=== PATIENT | female | born 1940 | race Caucasian/White ===

== ENCOUNTER 2017-10-30 15:00 | Inpatient (IN) ==
[2017-10-30] MEDS ORDERED: Mag Hydrox/Al Hydrox/Simeth 30 ML UDC PO PRN (16:20)
[2017-10-30] MEDS ORDERED: Albuterol 2.5 MG/3 ML NEBULIZER IH PRN (16:20)
[2017-10-30] MEDS ORDERED: *HR* Dextrose 50 % in Water (Syg) 50 ML SYRINGE IVP PRN (16:20)
[2017-10-30] MEDS ORDERED: Naloxone 0.4 MG/ML INJ IVP PRN (16:20)
[2017-10-30] MEDS ORDERED: Dextrose Gel 15 GM PO PRN (16:20)
[2017-10-30] MEDS ORDERED: NON-FORMULARY MEDICATION 1 EACH EACH (Oxygen [Oxygen] 3 L) NS SCH (16:30)
[2017-10-30] MEDS: Insulin LISPRO 300 UNITS/3 ML VIAL SQ SCH (17:50)
[2017-10-30] MEDS: Gabapentin 300 MG CAPSULE PO SCH (20:17)
[2017-10-30] MEDS: Nystatin POWDER 30 GM BOTTLE TP SCH (20:17)
[2017-10-30] MEDS: Insulin DETEMIR 100 UNIT/ML X5UNITS SQ SCH (20:20)
[2017-10-30] MEDS: Ipratropium/Albuterol Neb 3 ML IH SCH (20:23)
[2017-10-31] MEDS: Ipratropium/Albuterol Neb 3 ML IH SCH ×7 (00:04→22:07)
[2017-10-31 05:55] LABS: Hematocrit 42.2 % (35.3-44.9); Hemoglobin 13.4 g/dL (11.5-15.4); Mean Corpuscular HGB Conc 31.8 g/dL (31.6-35.5); Mean Corpuscular Hemoglobin 32.3 pg (28.0-33.3); Mean Corpuscular Volume 101.7 fL (83.0-100.0); Mean Platelet Volume 9.6 fL (9.4-12.4); Platelet Count 276 K/mcL (140-400); Red Blood Count 4.15 M/mcL (3.82-4.97); Red Cell Distribution Width 14.7 % (11.5-14.5)
[2017-10-31 07:05] LABS: BUN/Creatinine Ratio 40 (6-26); Blood Urea Nitrogen 31 mg/dL (8-23); Carbon Dioxide 41 mEq/L (23-29); Chloride 96 mEq/L (98-107); Glucose 119 mg/dL (70-105); Osmolality,Calculated 304 (280-300); Potassium 4.3 mEq/L (3.5-5.1); Sodium 143 mEq/L (136-145); eGFR For African Americans > 60 (> 60); eGFR For Non-African Americans > 60 (> 60)
[2017-10-31 07:31] LABS: Lymphocytes # 1.2 K/mcL (0.6-4.6); Monocytes # 0.3 K/mcL (0.0-1.3)
[2017-10-31] MEDS ORDERED: Diltiazem CD (24hr) 300 MG CAPSULE PO SCH (09:00)
[2017-10-31] MEDS ORDERED: predniSONE 10 MG TABLET PO SCH (09:00)
[2017-10-31] MEDS: Insulin LISPRO 300 UNITS/3 ML VIAL SQ SCH ×3 (09:11→16:59)
[2017-10-31] MEDS: Gabapentin 300 MG CAPSULE PO SCH ×3 (09:58→21:43)
[2017-10-31] MEDS: Metoprolol XL (24 HR) Succ 25 MG TAB.ER.24H PO SCH (09:59)
[2017-10-31] MEDS: Aspirin Enteric Coated 81 MG Tablet PO SCH (09:59)
[2017-10-31] MEDS: Insulin DETEMIR 100 UNIT/ML X5UNITS SQ SCH ×2 (10:11→21:47)
[2017-10-31] MEDS: Diltiazem CD (24hr) 180 MG CAPSULE PO SCH (12:23)
--- NOTE | 2017-10-31 14:21 | Internal Med History&Physical ---
Date of Encounter: 10/31/17 Time of Encounter: 12:15 Assessment and Plan (1) Pneumonia Current visit: No Status: Acute Continue Levaquin for 2 additional days. Will add lactobacillus. Qualifiers: Pneumonia type: due to unspecified organism Laterality: right Lung location: lower lobe of lung Qualified Code(s): J18.1 - Lobar pneumonia, unspecified organism (2) Leukocytosis Current visit: No Status: Acute Improving. Will discontinue steroids and continue to monitor CBC. Qualifiers: Leukocytosis type: unspecified Qualified Code(s): D72.829 - Elevated white blood cell count, unspecified (3) Left humeral fracture Current visit: No Status: Chronic As per orthopedist. Qualifiers: Encounter type: subsequent encounter Humerus Location: proximal Fracture type: closed Fracture morphology: other fracture Fracture alignment: displaced Fracture healing: with routine healing Qualified Code(s): S42.292D - Other displaced fracture of upper end of left humerus, subsequent encounter for fracture with routine healing (4) Diastolic dysfunction with heart failure Current visit: No Status: Acute Will add Lanoxin, Imdur and Bumex. Continue Toprol Qualifiers: Heart failure chronicity: acute on chronic Qualified Code(s): I50.33 - Acute on chronic diastolic (congestive) heart failure (5) Hypothyroidism Current visit: No Status: Chronic Continue Synthroid Qualifiers: Hypothyroidism type: acquired Qualified Code(s): E03.9 - Hypothyroidism, unspecified (6) Atrial fibrillation Current visit: Yes Status: Chronic She is on aspirin for CVA prophylaxis since the [facility] discharge summary states she has had retinal hemorrhage and oral anticoagulation was contraindicated. Qualifiers: Atrial fibrillation type: chronic Qualified Code(s): I48.2 - Chronic atrial fibrillation (7) CAD (coronary artery disease) Current visit: No Status: Chronic Continue aspirin, Toprol, and Imdur Qualifiers: Coronary Disease-Associated Artery/Lesion type: [place] artery [place] vs. transplanted heart: [place] heart Associated angina: without angina Qualified Code(s): I25.10 - Atherosclerotic heart disease of [place] coronary artery without angina pectoris (8) HILLARY (obstructive sleep apnea) Current visit: No Status: Chronic Continue BiPAP at at bedtime (9) Morbid obesity Current visit: No Status: Chronic (10) Macrocytosis Current visit: Yes Status: Acute Will order folate and B12 levels in a.m. Internal Medicine - H&P: HPI Chief complaint: Pneumonia Admitted From: Hospital to Hospital Transfer Plans for Post Hospital Care: Home History of present illness: Ms. Lock is a 77 year old female who was hospitalized at [facility] October 22 with acute respiratory failure and pneumonia. She had influenza A followed by a diagnosis of bacterial pneumonia. She was prescribed a 10 day course of Levaquin. She had evidence of heart failure. Cardiology was consulted and made recommendations. She was discharged to [facility] swing bed for ongoing care needs. She reports she had a fall October 03 resulting in a left humerus fracture. She states he was treated nonoperatively and has used an immobilizer sling. She has not walked since the October 03 fall. Past Med Surg Social Fam HX - Past Medical History Medical history: arthritis, atrial fibrillation, cancer, COPD, coronary artery disease, diabetes, hyperlipidemia, hypertension, myocardial infarction, renal disease Psychiatric history: anxiety, depression - Past Surgical History Surgical History: appendectomy, cancer surgery, cataract, cholecystectomy, hysterectomy, orthopedic, other, ETHAN/BSO - Social History Smoking Status: Former smoker Smokeless Tobacco Status: No Alcohol use: none Drug use: none - Family History Father Living Status: Hx Family Cardiac Disorders: Yes Mother Adopted: No Family Member Ethnicity: Non- Living Status: Hx Family Cardiac Disorders: Yes Hx Family Respiratory Disorders: No Hx Family Cancer: No Hx Family GI Disorders: No Hx Family Endocrine Disorder: No Hx Family Neuromuscular Disorders: No Hx Family Neurologic Disorders: No Hx Family HEENT Disorders: Yes Hx Family Autoimmune Disorders: No Internal Medicine - H&P: Meds Aspirin Enteric Coated [Aspirin EC] 81 mg PO DAILY #30 tablet. 06/02/15 [Rx] Insulin DETEMIR [Levemir] 80 unit SQ BID 07/06/15 [History] Levothyroxine [Synthroid] 175 mcg PO DAILY 07/06/15 [History] Lisinopril [Zestril] 20 mg PO DAILY 09/08/15 [History] Duloxetine HCl 60 mg PO DAILY 10/07/16 [History] Albuterol Sulfate [Albuterol Inhaler] 2 puff IH Q4HR PRN #4 [id number] 10/09/16 [Rx] Gabapentin [Neurontin] 600 mg PO TID 03/06/17 [History] Multivitamin [One Daily Essential] 1 tab PO DAILY 03/06/17 [History] Oxygen 3 l NS CONT 03/06/17 [History] Ipratropium/Albuterol Neb [Duoneb] 3 ml IH [id number] inhsol 10/05/17 [Rx] Atorvastatin Calcium [Lipitor] 80 mg PO HS 10/22/17 [History] Metoprolol Succinate [Toprol Xl] 25 mg PO DAILY 10/22/17 [History] Mirabegron [Myrbetriq] 50 mg PO DAILY 10/22/17 [History] Acetaminophen [Tylenol] 650 mg PO Q6HR PRN tablet 10/30/17 [Rx] Albuterol Neb [Proventil Neb] 2.5 mg IH [id number] PRN inhsol 10/30/17 [Rx] Dextrose 50 % in Water (Syg) [Dextrose 50% (Syg)] 25 ml IVP AD PRN syringe [Rx] Dextrose Gel [Gluctose] 30 gm PO ONCE PRN gel..gram. 10/30/17 [Rx] Diltiazem CD (24hr) [Cardizem CD] 360 mg PO DAILY cap.er.24h 10/30/17 [Rx] Docusate [Colace] 100 mg PO BID PRN capsule 10/30/17 [Rx] Glucagon, Human Recombinant [Glucagen] 1 mg IM ONCE PRN vial 10/30/17 [Rx] HYDROcodone/Acet 5/325 mg [[place] 5-325 mg] 1 tab PO Q6HR PRN 1 Days tablet [Rx] Insulin DETEMIR [Levemir] 85 unit SQ BID [id number] 10/30/17 [Rx] Insulin LISPRO [HumaLOG] 0 units SQ TIDAC vial 10/30/17 [Rx] Insulin LISPRO [HumaLOG] 20 units SQ TIDWM vial 10/30/17 [Rx] Ipratropium/Albuterol Neb [Duoneb] 3 ml IH [id number] inhsol 10/30/17 [Rx] Lactulose 10 gm PO BID PRN udc 10/30/17 [Rx] Mag Hydrox/Al Hydrox/Simeth [Maalox] 15 ml PO Q6HR PRN udc 10/30/17 [Rx] Naloxone [Narcan] 0.4 mg IVP Q2MIN PRN inj 10/30/17 [Rx] Nystatin POWDER [Nystop] 1 appl TP BID bottle 10/30/17 [Rx] Omeprazole [PriLOSEC] 20 mg PO DAILY@0730 capsule. 10/30/17 [Rx] Polyethylene Glycol 3350 [MiraLAX] 17 gm PO DAILY powd.pack 10/30/17 [Rx] Sennosides/Docusate Sodium [Senna Plus] 2 each PO BID PRN tablet 10/30/17 [Rx] levoFLOXacin [Levaquin] 750 mg PO DAILY tablet 10/30/17 [Rx] predniSONE [PredniSONE] 30 mg PO DAILY tablet 10/30/17 [Rx] 3 Allergy/AdvReac Type Severity Reaction Status Date / Time hydrocodone [From Vicodin] AdvReac Nausea Verified 03/05/17 17:03 metformin [From Glucophage] AdvReac Diarrhea Verified 07/06/15 09:38 All Systems PM: A 10-system review of systems was performed and is negative for pertinent findings except as documented above in the HPI. Review of systems: Gen.: She states her weight has been stable the past few months Cardiovascular: She has history of hypertension. She states she was diagnosed with atrial fibrillation approximately one year ago. She has ASHD status post TX with 2 stents placed in 2017. She denies DVT or pulmonary embolus. Respiratory: She smoked from age [age] up to 2 packs per day. She has been diagnosed with COPD but does not recall when PFTs were done. She has HILLARY and uses BiPAP. She wears oxygen 24/7. She reports presently having a cough with no significant productivity. GI: She has had cholecystectomy. She had pancreatitis approximately 25 years ago without recurrence. She denies disorders of her liver. : She denies hematuria dysuria or kidney stones Neurologic: She denies large distribution strokes or seizures. Endocrine: She was diagnosed with DM 2 approximately age 52. She has hypothyroidism and hyperlipidemia Hematology/oncology: She states she was diagnosed with renal cell cancer approximately 25 years ago. She reports a subtotal resection was done which was curative. She reports cervical cancer with curative hysterectomy 2013. She denies other internal malignancies or anemia Psychiatric: She has depression and anxiety but denies other mental health issues Muscular skeletal: She has DJD but denies gout or other bone joint or muscle disorders. - Constitutional Vitals: Temp Pulse Resp BP Pulse Ox 98.7 F 92 18 117/83 93 10/31/17 11:44 10/31/17 11:44 10/31/17 11:55 10/31/17 11:44 10/31/17 11:55 Exam: Gen.: She is a well-developed obese female lying in bed who appears in no severe distress at present time. She appears slightly dyspneic. HEENT: Head is atraumatic and normocephalic. Eyes: EOMI. There is no scleral icterus. Mouth: Mucosa is moist. Neck: Supple and nontender. There is no thyromegaly or adenopathy noted. Heart: Irregularly irregular without audible murmurs Lungs: No wheezes or crackles are heard. She has diminished breath sounds diffusely. Abdomen: She has a very large abdomen. There are ecchymosis on the abdominal wall. No masses or guarding are noted. Extremities: She has 2-3+ edema of the dorsum of feet and lower anterior shins bilaterally. She has a left arm immobilizer sling that is not fastened securely. She has significant ecchymosis and edema of the entire left upper arm with edema extending down into the fingers. There is minimal edema of the right arm. She has ecchymoses of the right knee. Neurologic: Mental status: She is talkative and a good historian. Cranial nerves: Smile is symmetric. Forehead wrinkles bilaterally. Tongue protrudes midline. EOMI. Motor: There is no pronator drift with her right arm. The left arm does not move well because of the fracture and edema. Cerebellar: Finger to nose is not attempted with the left hand. Right arm shows intact finger to nose movement. Skin: She has ecchymosis as described above. Otherwise her skin is warm and dry. Internal Med - H&P Results - Labs CBC & Chem 7: 10/31/17 05:07 10/31/17 05:07 Labs: Short CBC 10/31/17 Range/Units 05:07 WBC 15.5 H (4.3-11.1) K/mcL Hgb 13.4 (11.5-15.4) g/dL Hct 42.2 (35.3-44.9) % Plt Count 276 (140-400) K/mcL Neutrophils # 14.0 H (1.6-8.9) K/mcL BMP 10/31/17 05:07 Sodium 143 Potassium 4.3 Chloride 96 L Carbon Dioxide 41 H* BUN 31 H Creatinine 0.78 Glucose 119 H Calcium 9.0
[2017-10-31] MEDS: Bumetanide 1 MG TABLET PO SCH (16:30)
[2017-10-31] MEDS: *HR* Digoxin 0.125 MG TABLET PO SCH (16:30)
[2017-10-31] MEDS: Isosorbide MONOnitrate (24 HR) 30 MG TAB.ER.24H PO SCH (16:30)
[2017-10-31] MEDS: levoFLOXacin 250 MG TABLET PO SCH (16:34)
[2017-10-31] MEDS: Nystatin POWDER 30 GM BOTTLE TP SCH (21:43)
[2017-10-31] MEDS: Lactobacillus 1 EACH CAP.SPRINK PO SCH (21:43)
[2017-10-31] MEDS: *HR* HYDROcodone/Acet 5/325 mg TABLET PO PRN (21:45)
[2017-11-01] MEDS: Nystatin POWDER 30 GM BOTTLE TP SCH ×3 (00:40→21:06)
[2017-11-01] MEDS: Ipratropium/Albuterol Neb 3 ML IH SCH ×5 (04:15→20:46)
[2017-11-01] MEDS: Diltiazem CD (24hr) 180 MG CAPSULE PO SCH (09:02)
[2017-11-01] MEDS: Lactobacillus 1 EACH CAP.SPRINK PO SCH ×2 (09:10→21:05)
[2017-11-01] MEDS: Bumetanide 1 MG TABLET PO SCH (09:10)
[2017-11-01] MEDS: Aspirin Enteric Coated 81 MG Tablet PO SCH (09:13)
[2017-11-01] MEDS: Gabapentin 300 MG CAPSULE PO SCH ×3 (09:13→21:05)
[2017-11-01] MEDS: Isosorbide MONOnitrate (24 HR) 30 MG TAB.ER.24H PO SCH (09:13)
[2017-11-01] MEDS: *HR* Digoxin 0.125 MG TABLET PO SCH (09:13)
[2017-11-01] MEDS: levoFLOXacin 250 MG TABLET PO SCH (09:14)
[2017-11-01] MEDS: Insulin LISPRO 300 UNITS/3 ML VIAL SQ SCH ×3 (09:17→17:42)
[2017-11-01] MEDS: Metoprolol XL (24 HR) Succ 25 MG TAB.ER.24H PO SCH (09:22)
--- NOTE | 2017-11-01 10:24 | Internal Med Progress Note ---
Date of Encounter: 11/01/17 Time of Encounter: 10:15 - Assessment and plan (1) Pneumonia Current Visit: No Status: Acute Assessment and plan: November 01. Continue Levaquin through tomorrow's doses with lactobacillus. Qualifiers: Pneumonia type: due to unspecified organism Laterality: right Lung location: lower lobe of lung Qualified Code(s): J18.1 - Lobar pneumonia, unspecified organism (2) Leukocytosis Current Visit: No Status: Acute Assessment and plan: November 01. We will monitor CBC. Qualifiers: Leukocytosis type: unspecified Qualified Code(s): D72.829 - Elevated white blood cell count, unspecified (3) Left humeral fracture Current Visit: No Status: Chronic Assessment and plan: November 01. As per orthopedist Qualifiers: Encounter type: subsequent encounter Humerus Location: proximal Fracture type: closed Fracture morphology: other fracture Fracture alignment: displaced Fracture healing: with routine healing Qualified Code(s): S42.292D - Other displaced fracture of upper end of left humerus, subsequent encounter for fracture with routine healing (4) Diastolic dysfunction with heart failure Current Visit: No Status: Acute Assessment and plan: November 01. Continue Lanoxin, Imdur, Bumex, and Toprol Qualifiers: Heart failure chronicity: acute on chronic Qualified Code(s): I50.33 - Acute on chronic diastolic (congestive) heart failure (5) Hypothyroidism Current Visit: No Status: Chronic Assessment and plan: November 01. Continue Synthroid Qualifiers: Hypothyroidism type: acquired Qualified Code(s): E03.9 - Hypothyroidism, unspecified (6) Atrial fibrillation Current Visit: Yes Status: Chronic Assessment and plan: November 01. Continue aspirin Qualifiers: Atrial fibrillation type: chronic Qualified Code(s): I48.2 - Chronic atrial fibrillation (7) CAD (coronary artery disease) Current Visit: No Status: Chronic Assessment and plan: November 01. Continue aspirin, Toprol, and Imdur Qualifiers: Coronary Disease-Associated Artery/Lesion type: [place] artery [place] vs. transplanted heart: [place] heart Associated angina: without angina Qualified Code(s): I25.10 - Atherosclerotic heart disease of [place] coronary artery without angina pectoris (8) HILLARY (obstructive sleep apnea) Current Visit: No Status: Chronic Assessment and plan: November 01. Continue BiPAP (9) Morbid obesity Current Visit: No Status: Chronic (10) Macrocytosis Current Visit: Yes Status: Acute Assessment and plan: November 01. B12 and folate levels pending. - Subjective Interval history: November 01. She has no new complaints and feels better - Constitutional Vitals: Temp Pulse Resp BP Pulse Ox 97.6 F 102 18 97/60 95 11/01/17 06:44 11/01/17 06:44 11/01/17 06:44 11/01/17 06:44 11/01/17 07:03 Exam: She is resting comfortably in bed and appears in no acute distress. Her edema is minimally changed. Her affect is bright and cheerful. I reviewed her medications and lab results. Internal Medicine: Result - Labs CBC & Chem 7: 10/31/17 05:07 10/31/17 05:07 - ABG Interpretation ABG results: PT/INR, D-dimer PT 11.0 Seconds (9.4-12.1) 10/31/17 05:07 Consult Discharge Plan - Plan Referrals: Nahomi Crandall, DIRECTOR OF BLOOD [Primary Care Provider] - 1 week
[2017-11-01] MEDS: Insulin DETEMIR 100 UNIT/ML X5UNITS SQ SCH ×2 (12:36→21:06)
[2017-11-01 14:09] LABS: Folate 15.6 ng/mL (3.0-16.0)
[2017-11-01] MEDS: *HR* HYDROcodone/Acet 5/325 mg TABLET PO PRN (17:40)
[2017-11-02] MEDS: Ipratropium/Albuterol Neb 3 ML IH SCH ×6 (00:30→20:07)
[2017-11-02] MEDS: Insulin LISPRO 300 UNITS/3 ML VIAL SQ SCH ×3 (08:39→17:23)
[2017-11-02] MEDS ORDERED: predniSONE 10 MG TABLET PO SCH (09:00)
[2017-11-02] MEDS: Diltiazem CD (24hr) 180 MG CAPSULE PO SCH (09:16)
[2017-11-02] MEDS: Bumetanide 1 MG TABLET PO SCH (09:16)
[2017-11-02] MEDS: Insulin DETEMIR 100 UNIT/ML X5UNITS SQ SCH (09:16)
[2017-11-02] MEDS: *HR* Digoxin 0.125 MG TABLET PO SCH (09:17)
[2017-11-02] MEDS: Lactobacillus 1 EACH CAP.SPRINK PO SCH ×2 (09:17→22:01)
[2017-11-02] MEDS: Aspirin Enteric Coated 81 MG Tablet PO SCH (09:17)
[2017-11-02] MEDS: Isosorbide MONOnitrate (24 HR) 30 MG TAB.ER.24H PO SCH (09:19)
[2017-11-02] MEDS: Gabapentin 300 MG CAPSULE PO SCH ×3 (09:19→22:01)
[2017-11-02] MEDS: Metoprolol XL (24 HR) Succ 25 MG TAB.ER.24H PO SCH (09:20)
[2017-11-02] MEDS: Nystatin POWDER 30 GM BOTTLE TP SCH ×2 (09:21→21:00)
[2017-11-02] MEDS: *HR* HYDROcodone/Acet 5/325 mg TABLET PO PRN ×3 (09:31→22:02)
[2017-11-03] MEDS: Ipratropium/Albuterol Neb 3 ML IH SCH ×5 (00:23→16:32)
[2017-11-03] MEDS: Insulin DETEMIR 100 UNIT/ML X5UNITS SQ SCH ×3 (08:14→21:03)
[2017-11-03] MEDS: Insulin LISPRO 300 UNITS/3 ML VIAL SQ SCH ×3 (08:44→16:49)
[2017-11-03] MEDS: Diltiazem CD (24hr) 180 MG CAPSULE PO SCH (08:45)
[2017-11-03] MEDS: Aspirin Enteric Coated 81 MG Tablet PO SCH (08:45)
[2017-11-03] MEDS: Isosorbide MONOnitrate (24 HR) 30 MG TAB.ER.24H PO SCH (08:45)
[2017-11-03] MEDS: Gabapentin 300 MG CAPSULE PO SCH ×3 (08:45→21:14)
[2017-11-03] MEDS: Metoprolol XL (24 HR) Succ 25 MG TAB.ER.24H PO SCH (08:45)
[2017-11-03] MEDS: Lactobacillus 1 EACH CAP.SPRINK PO SCH (08:45)
[2017-11-03] MEDS: *HR* Digoxin 0.125 MG TABLET PO SCH (08:45)
[2017-11-03] MEDS: Bumetanide 1 MG TABLET PO SCH (08:45)
[2017-11-03] MEDS: *HR* HYDROcodone/Acet 5/325 mg TABLET PO PRN ×2 (11:38→21:14)
[2017-11-03] MEDS: Acetaminophen 325 MG TABLET PO PRN (11:38)
[2017-11-03] MEDS: Nystatin POWDER 30 GM BOTTLE TP SCH ×2 (15:03→21:00)
--- NOTE | 2017-11-03 16:56 | Internal Med Progress Note ---
Date of Encounter: 11/03/17 Time of Encounter: 16:48 - Assessment and plan (1) Pneumonia Current Visit: No Status: Acute Assessment and plan: November 01. Continue Levaquin through tomorrow's doses with lactobacillus. November 03. Will discontinue Levaquin and lactobacillus. Qualifiers: Pneumonia type: due to unspecified organism Laterality: right Lung location: lower lobe of lung Qualified Code(s): J18.1 - Lobar pneumonia, unspecified organism (2) Leukocytosis Current Visit: No Status: Acute Assessment and plan: November 01. We will monitor CBC. Qualifiers: Leukocytosis type: unspecified Qualified Code(s): D72.829 - Elevated white blood cell count, unspecified (3) Left humeral fracture Current Visit: No Status: Chronic Assessment and plan: November 01. As per orthopedist Qualifiers: Encounter type: subsequent encounter Humerus Location: proximal Fracture type: closed Fracture morphology: other fracture Fracture alignment: displaced Fracture healing: with routine healing Qualified Code(s): S42.292D - Other displaced fracture of upper end of left humerus, subsequent encounter for fracture with routine healing (4) Diastolic dysfunction with heart failure Current Visit: No Status: Acute Assessment and plan: November 01. Continue Lanoxin, Imdur, Bumex, and Toprol Qualifiers: Heart failure chronicity: acute on chronic Qualified Code(s): I50.33 - Acute on chronic diastolic (congestive) heart failure (5) Hypothyroidism Current Visit: No Status: Chronic Assessment and plan: November 01. Continue Synthroid Qualifiers: Hypothyroidism type: acquired Qualified Code(s): E03.9 - Hypothyroidism, unspecified (6) Atrial fibrillation Current Visit: Yes Status: Chronic Assessment and plan: November 01. Continue aspirin Qualifiers: Atrial fibrillation type: chronic Qualified Code(s): I48.2 - Chronic atrial fibrillation (7) CAD (coronary artery disease) Current Visit: No Status: Chronic Assessment and plan: November 01. Continue aspirin, Toprol, and Imdur Qualifiers: Coronary Disease-Associated Artery/Lesion type: [place] artery [place] vs. transplanted heart: [place] heart Associated angina: without angina Qualified Code(s): I25.10 - Atherosclerotic heart disease of [place] coronary artery without angina pectoris (8) HILLARY (obstructive sleep apnea) Current Visit: No Status: Chronic Assessment and plan: November 01. Continue BiPAP (9) Morbid obesity Current Visit: No Status: Chronic (10) Macrocytosis Current Visit: Yes Status: Acute Assessment and plan: November 01. B12 and folate levels pending. November 03. B12 and folate levels normal. - Subjective Interval history: November 01. She has no new complaints and feels better November 03. She has no new complaints and feels better - Constitutional Vitals: Temp Pulse Resp BP Pulse Ox 98.3 F 115 16 111/80 91 11/03/17 07:11 11/03/17 07:11 11/03/17 16:34 11/03/17 07:11 11/03/17 16:34 Exam: She is resting comfortably in bed and appears in no acute distress. Her affect is bright and cheerful. She is wearing oxygen by nasal cannula. Her extremities show slight decreased edema. I reviewed her medications and lab results. Internal Medicine: Result - Labs CBC & Chem 7: 10/31/17 05:07 10/31/17 05:07 - ABG Interpretation ABG results: PT/INR, D-dimer PT 11.0 Seconds (9.4-12.1) 10/31/17 05:07 Consult Discharge Plan - Plan Referrals: Nahomi Crandall, GUNITE NOZZLE OPERATOR [Primary Care Provider] - 1 week
[2017-11-03] MEDS: Ipratropium/Albuterol Neb 3 ML IH PRN (20:37)
[2017-11-04] MEDS: Ipratropium/Albuterol Neb 3 ML IH PRN ×3 (00:06→19:00)
[2017-11-04 07:35] LABS: Basophils # 0.1 K/mcL (0.0-0.2); Basophils % 0.4 %; Eosinophils % 0.1 %; Hematocrit 38.1 % (35.3-44.9); Hemoglobin 12.1 g/dL (11.5-15.4); Immature Granulocytes % 3.9 % (0-4); Lymphocytes % 4.6 %; Mean Corpuscular HGB Conc 31.8 g/dL (31.6-35.5); Mean Corpuscular Hemoglobin 32.8 pg (28.0-33.3); Mean Corpuscular Volume 103.3 fL (83.0-100.0); Mean Platelet Volume 9.5 fL (9.4-12.4); Monocytes # 0.7 K/mcL (0.0-1.3); Platelet Count 235 K/mcL (140-400); Red Blood Count 3.69 M/mcL (3.82-4.97); Red Cell Distribution Width 15.3 % (11.5-14.5)
[2017-11-04] MEDS: *HR* HYDROcodone/Acet 5/325 mg TABLET PO PRN ×2 (07:35→15:56)
[2017-11-04] MEDS: Acetaminophen 325 MG TABLET PO PRN (07:35)
[2017-11-04] MEDS: Gabapentin 300 MG CAPSULE PO SCH ×3 (07:35→20:08)
[2017-11-04] MEDS: Aspirin Enteric Coated 81 MG Tablet PO SCH (07:36)
[2017-11-04] MEDS: Bumetanide 1 MG TABLET PO SCH (07:36)
[2017-11-04] MEDS: *HR* Digoxin 0.125 MG TABLET PO SCH (07:36)
[2017-11-04] MEDS: Metoprolol XL (24 HR) Succ 25 MG TAB.ER.24H PO SCH (07:36)
[2017-11-04] MEDS: Diltiazem CD (24hr) 180 MG CAPSULE PO SCH (07:36)
[2017-11-04] MEDS: Isosorbide MONOnitrate (24 HR) 30 MG TAB.ER.24H PO SCH (07:36)
[2017-11-04 07:38] LABS: Lymphocytes # 0.9 K/mcL (0.6-4.6)
[2017-11-04] MEDS: Insulin LISPRO 300 UNITS/3 ML VIAL SQ SCH ×3 (07:46→16:35)
[2017-11-04] MEDS: Insulin DETEMIR 100 UNIT/ML X5UNITS SQ SCH ×2 (08:37→20:08)
[2017-11-04 12:21] LABS: Potassium 4.4 mEq/L (3.5-5.1); Sodium 142 mEq/L (136-145)
[2017-11-04 12:22] LABS: BUN/Creatinine Ratio 35 (6-26); Blood Urea Nitrogen 34 mg/dL (8-23); Calcium 9.1 mg/dL (8.6-10.3); Carbon Dioxide 36 mEq/L (23-29); Chloride 94 mEq/L (98-107); Digoxin 0.7 ng/mL (0.8-2.0); Glucose 386 mg/dL (70-105); Osmolality,Calculated 318 (280-300); eGFR For African Americans > 60 (> 60); eGFR For Non-African Americans 56 (> 60)
[2017-11-04 16:06] LABS: Hemoglobin A1C 7.9 %
[2017-11-04] MEDS: Nystatin POWDER 30 GM BOTTLE TP SCH ×2 (16:07→20:09)
[2017-11-05] MEDS: *HR* HYDROcodone/Acet 5/325 mg TABLET PO PRN ×3 (03:51→20:15)
[2017-11-05] MEDS: Insulin LISPRO 300 UNITS/3 ML VIAL SQ SCH ×3 (07:42→17:07)
[2017-11-05] MEDS: Gabapentin 300 MG CAPSULE PO SCH (07:43)
[2017-11-05] MEDS: Bumetanide 1 MG TABLET PO SCH (07:43)
[2017-11-05] MEDS: Metoprolol XL (24 HR) Succ 25 MG TAB.ER.24H PO SCH (07:43)
[2017-11-05] MEDS: *HR* Digoxin 0.125 MG TABLET PO SCH (07:43)
[2017-11-05] MEDS: Diltiazem CD (24hr) 180 MG CAPSULE PO SCH (07:44)
[2017-11-05] MEDS: Isosorbide MONOnitrate (24 HR) 30 MG TAB.ER.24H PO SCH (07:44)
[2017-11-05] MEDS: Aspirin Enteric Coated 81 MG Tablet PO SCH (07:44)
[2017-11-05] MEDS: Insulin DETEMIR 100 UNIT/ML X5UNITS SQ SCH ×2 (08:49→20:12)
--- NOTE | 2017-11-05 11:59 | Internal Med Progress Note ---
Date of Encounter: 11/05/17 Time of Encounter: 11:50 - Assessment and plan (1) Pneumonia Current Visit: No Status: Acute Assessment and plan: November 01. Continue Levaquin through tomorrow's doses with lactobacillus. November 03. Will discontinue Levaquin and lactobacillus. November 05. Now off antibiotics. Continue to monitor clinically. Qualifiers: Pneumonia type: due to unspecified organism Laterality: right Lung location: lower lobe of lung Qualified Code(s): J18.1 - Lobar pneumonia, unspecified organism (2) Leukocytosis Current Visit: No Status: Acute Assessment and plan: November 01. We will monitor CBC. Qualifiers: Leukocytosis type: unspecified Qualified Code(s): D72.829 - Elevated white blood cell count, unspecified (3) Left humeral fracture Current Visit: No Status: Chronic Assessment and plan: November 01. As per orthopedist Qualifiers: Encounter type: subsequent encounter Humerus Location: proximal Fracture type: closed Fracture morphology: other fracture Fracture alignment: displaced Fracture healing: with routine healing Qualified Code(s): S42.292D - Other displaced fracture of upper end of left humerus, subsequent encounter for fracture with routine healing (4) Diastolic dysfunction with heart failure Current Visit: No Status: Acute Assessment and plan: November 01. Continue Lanoxin, Imdur, Bumex, and Toprol November 05. BN peptide normal at 52. Continue present regimen except increase Bumex. We will also decrease gabapentin to lessen edema. Qualifiers: Heart failure chronicity: acute on chronic Qualified Code(s): I50.33 - Acute on chronic diastolic (congestive) heart failure (5) Hypothyroidism Current Visit: No Status: Chronic Assessment and plan: November 01. Continue Synthroid Qualifiers: Hypothyroidism type: acquired Qualified Code(s): E03.9 - Hypothyroidism, unspecified (6) Atrial fibrillation Current Visit: Yes Status: Chronic Assessment and plan: November 01. Continue aspirin Qualifiers: Atrial fibrillation type: chronic Qualified Code(s): I48.2 - Chronic atrial fibrillation (7) CAD (coronary artery disease) Current Visit: No Status: Chronic Assessment and plan: November 01. Continue aspirin, Toprol, and Imdur Qualifiers: Coronary Disease-Associated Artery/Lesion type: [place] artery [place] vs. transplanted heart: [place] heart Associated angina: without angina Qualified Code(s): I25.10 - Atherosclerotic heart disease of [place] coronary artery without angina pectoris (8) HILLARY (obstructive sleep apnea) Current Visit: No Status: Chronic Assessment and plan: November 01. Continue BiPAP (9) Morbid obesity Current Visit: No Status: Chronic (10) Macrocytosis Current Visit: Yes Status: Acute Assessment and plan: November 01. B12 and folate levels pending. November 03. B12 and folate levels normal. - Subjective Interval history: November 01. She has no new complaints and feels better November 03. She has no new complaints and feels better November 05. She has no new complaints and feels better - Constitutional Vitals: Temp Pulse Resp BP Pulse Ox 97.6 F 96 22 134/70 95 11/05/17 06:40 11/05/17 06:40 11/05/17 06:40 11/05/17 06:40 11/05/17 06:40 Exam: She is resting comfortably in bed and appears in no acute distress. Her leg edema has minimally lessened. Her affect is bright and cheerful. I reviewed her medications and lab results. Internal Medicine: Result - Labs CBC & Chem 7: 11/04/17 07:25 11/04/17 04:00 Labs: BMP 11/04/17 04:00 Sodium 142 Potassium 4.4 Chloride 94 L Carbon Dioxide 36 H BUN 34 H Creatinine 0.97 Glucose 386 H Calcium 9.1 - ABG Interpretation ABG results: PT/INR, D-dimer PT 11.0 Seconds (9.4-12.1) 10/31/17 05:07 Consult Discharge Plan - Plan Referrals: Nahomi Crandall, MEDICAL SALES REPRESENTATIVE [Primary Care Provider] - 1 week
[2017-11-05] MEDS: Gabapentin 400 MG CAPSULE PO SCH ×2 (15:24→20:12)
[2017-11-05] MEDS: Nystatin POWDER 30 GM BOTTLE TP SCH ×2 (20:13→21:28)
[2017-11-05] MEDS: Ipratropium/Albuterol Neb 3 ML IH PRN (20:46)
[2017-11-06] MEDS: Insulin LISPRO 300 UNITS/3 ML VIAL SQ SCH ×3 (07:55→17:06)
[2017-11-06] MEDS: *HR* HYDROcodone/Acet 5/325 mg TABLET PO PRN (08:00)
[2017-11-06] MEDS ORDERED: predniSONE 10 MG TABLET PO SCH (09:00)
[2017-11-06] MEDS: Insulin DETEMIR 100 UNIT/ML X5UNITS SQ SCH ×2 (09:16→21:21)
[2017-11-06] MEDS: *HR* Digoxin 0.125 MG TABLET PO SCH (09:17)
[2017-11-06] MEDS: Diltiazem CD (24hr) 180 MG CAPSULE PO SCH (09:17)
[2017-11-06] MEDS: Isosorbide MONOnitrate (24 HR) 30 MG TAB.ER.24H PO SCH (09:17)
[2017-11-06] MEDS: Bumetanide 1 MG TABLET PO SCH (09:17)
[2017-11-06] MEDS: Aspirin Enteric Coated 81 MG Tablet PO SCH (09:17)
[2017-11-06] MEDS: Gabapentin 400 MG CAPSULE PO SCH ×3 (09:19→21:20)
[2017-11-06] MEDS: Lactulose Oral Soln 20 GM/30 ML UDC PO PRN ×2 (09:23→21:21)
[2017-11-06] MEDS: Metoprolol XL (24 HR) Succ 25 MG TAB.ER.24H PO SCH (09:23)
[2017-11-06] MEDS: Nystatin POWDER 30 GM BOTTLE TP SCH ×2 (12:28→21:22)
[2017-11-06] MEDS: Ipratropium/Albuterol Neb 3 ML IH PRN (20:14)
[2017-11-06] MEDS: Sennosides/Docusate Sodium TABLET PO PRN (21:20)
[2017-11-07] MEDS: *HR* HYDROcodone/Acet 5/325 mg TABLET PO PRN ×3 (07:56→21:22)
[2017-11-07] MEDS: Sennosides/Docusate Sodium TABLET PO PRN ×2 (07:56→21:21)
[2017-11-07] MEDS: Insulin LISPRO 300 UNITS/3 ML VIAL SQ SCH ×3 (07:58→17:44)
[2017-11-07] MEDS: Ipratropium/Albuterol Neb 3 ML IH PRN ×2 (08:55→16:00)
[2017-11-07] MEDS: Bumetanide 1 MG TABLET PO SCH (10:48)
[2017-11-07] MEDS: Diltiazem CD (24hr) 180 MG CAPSULE PO SCH (10:48)
[2017-11-07] MEDS: Gabapentin 400 MG CAPSULE PO SCH ×3 (10:49→21:21)
[2017-11-07] MEDS: Isosorbide MONOnitrate (24 HR) 30 MG TAB.ER.24H PO SCH (10:49)
[2017-11-07] MEDS: Aspirin Enteric Coated 81 MG Tablet PO SCH (10:49)
[2017-11-07] MEDS: *HR* Digoxin 0.125 MG TABLET PO SCH (10:49)
[2017-11-07] MEDS: Nystatin POWDER 30 GM BOTTLE TP SCH ×2 (10:50→21:22)
[2017-11-07] MEDS: Metoprolol XL (24 HR) Succ 25 MG TAB.ER.24H PO SCH (10:50)
[2017-11-07] MEDS: Insulin DETEMIR 100 UNIT/ML X5UNITS SQ SCH ×2 (11:35→21:22)
[2017-11-07] MEDS: Lactulose Oral Soln 20 GM/30 ML UDC PO PRN (16:17)
[2017-11-08] MEDS: Sennosides/Docusate Sodium TABLET PO PRN (09:43)
[2017-11-08] MEDS: Lactulose Oral Soln 20 GM/30 ML UDC PO PRN (09:43)
[2017-11-08] MEDS: Aspirin Enteric Coated 81 MG Tablet PO SCH (09:45)
[2017-11-08] MEDS: Nystatin POWDER 30 GM BOTTLE TP SCH ×2 (09:45→21:24)
[2017-11-08] MEDS: Diltiazem CD (24hr) 180 MG CAPSULE PO SCH (09:45)
[2017-11-08] MEDS: *HR* Digoxin 0.125 MG TABLET PO SCH (09:45)
[2017-11-08] MEDS: Isosorbide MONOnitrate (24 HR) 30 MG TAB.ER.24H PO SCH (09:45)
[2017-11-08] MEDS: Bumetanide 1 MG TABLET PO SCH (09:45)
[2017-11-08] MEDS: Metoprolol XL (24 HR) Succ 25 MG TAB.ER.24H PO SCH (09:46)
[2017-11-08] MEDS: Gabapentin 400 MG CAPSULE PO SCH ×3 (09:46→21:23)
[2017-11-08] MEDS: *HR* HYDROcodone/Acet 5/325 mg TABLET PO PRN (09:46)
[2017-11-08] MEDS: Insulin DETEMIR 100 UNIT/ML X5UNITS SQ SCH ×3 (09:48→21:23)
[2017-11-08] MEDS: Insulin LISPRO 300 UNITS/3 ML VIAL SQ SCH ×3 (09:48→17:09)
[2017-11-08] MEDS: Ipratropium/Albuterol Neb 3 ML IH PRN (10:33)
--- NOTE | 2017-11-08 12:40 | Internal Med Progress Note ---
Date of Encounter: 11/08/17 Time of Encounter: 12:30 - Assessment and plan (1) Pneumonia Current Visit: No Status: Acute Assessment and plan: November 01. Continue Levaquin through tomorrow's doses with lactobacillus. November 03. Will discontinue Levaquin and lactobacillus. November 05. Now off antibiotics. Continue to monitor clinically. Qualifiers: Pneumonia type: due to unspecified organism Laterality: right Lung location: lower lobe of lung Qualified Code(s): J18.1 - Lobar pneumonia, unspecified organism (2) Leukocytosis Current Visit: No Status: Acute Assessment and plan: November 01. We will monitor CBC. November 08. We will check labs in a.m. Qualifiers: Leukocytosis type: unspecified Qualified Code(s): D72.829 - Elevated white blood cell count, unspecified (3) Left humeral fracture Current Visit: No Status: Chronic Assessment and plan: November 01. As per orthopedist November 08. Continue present therapy. She will need a Coral lift at home upon discharge. She will also need a semi-electric hospital bed since she requires changes in body position and will need head of bed elevated to at least 30 degrees due to congestive heart failure. Qualifiers: Encounter type: subsequent encounter Humerus Location: proximal Fracture type: closed Fracture morphology: other fracture Fracture alignment: displaced Fracture healing: with routine healing Qualified Code(s): S42.292D - Other displaced fracture of upper end of left humerus, subsequent encounter for fracture with routine healing (4) Diastolic dysfunction with heart failure Current Visit: No Status: Acute Assessment and plan: November 01. Continue Lanoxin, Imdur, Bumex, and Toprol November 05. BN peptide normal at 52. Continue present regimen except increase Bumex. We will also decrease gabapentin to lessen edema. November 08. Continue present regimen. Recheck labs in a.m. Qualifiers: Heart failure chronicity: acute on chronic Qualified Code(s): I50.33 - Acute on chronic diastolic (congestive) heart failure (5) Hypothyroidism Current Visit: No Status: Chronic Assessment and plan: November 01. Continue Synthroid Qualifiers: Hypothyroidism type: acquired Qualified Code(s): E03.9 - Hypothyroidism, unspecified (6) Atrial fibrillation Current Visit: Yes Status: Chronic Assessment and plan: November 01. Continue aspirin Qualifiers: Atrial fibrillation type: chronic Qualified Code(s): I48.2 - Chronic atrial fibrillation (7) CAD (coronary artery disease) Current Visit: No Status: Chronic Assessment and plan: November 01. Continue aspirin, Toprol, and Imdur Qualifiers: Coronary Disease-Associated Artery/Lesion type: [place] artery [place] vs. transplanted heart: [place] heart Associated angina: without angina Qualified Code(s): I25.10 - Atherosclerotic heart disease of [place] coronary artery without angina pectoris (8) HILLARY (obstructive sleep apnea) Current Visit: No Status: Chronic Assessment and plan: November 01. Continue BiPAP (9) Morbid obesity Current Visit: No Status: Chronic (10) Macrocytosis Current Visit: Yes Status: Acute Assessment and plan: November 01. B12 and folate levels pending. November 03. B12 and folate levels normal. - Subjective Interval history: November 01. She has no new complaints and feels better November 03. She has no new complaints and feels better November 05. She has no new complaints and feels better November 08. She has no new complaints. - Constitutional Vitals: Temp Pulse Resp BP Pulse Ox 97.7 F 72 15 112/71 94 11/08/17 06:44 11/08/17 06:44 11/08/17 10:36 11/08/17 06:44 11/08/17 10:36 Exam: She is resting comfortably in bed. Her extremities show slight decrease in edema. Her affect is bright and cheerful. I reviewed her medications and lab results. Internal Medicine: Result - Labs CBC & Chem 7: 11/04/17 07:25 11/04/17 04:00 - ABG Interpretation ABG results: PT/INR, D-dimer PT 11.0 Seconds (9.4-12.1) 10/31/17 05:07 Consult Discharge Plan - Plan Referrals: Nahomi Crandall, MEDICAL REVIEW SPECIALIST [Primary Care Provider] - 1 week
[2017-11-09 06:20] LABS: Basophils # 0.1 K/mcL (0.0-0.2); Basophils % 0.5 %; Eosinophils # 0.2 K/mcL (0.0-0.6); Eosinophils % 1.8 %; Hemoglobin 11.8 g/dL (11.5-15.4); Immature Granulocytes % 2.7 % (0-4); Lymphocytes # 1.3 K/mcL (0.6-4.6); Lymphocytes % 10.9 %; Mean Corpuscular HGB Conc 31.1 g/dL (31.6-35.5); Mean Corpuscular Hemoglobin 32.9 pg (28.0-33.3); Mean Corpuscular Volume 105.8 fL (83.0-100.0); Mean Platelet Volume 10.1 fL (9.4-12.4); Monocytes # 0.7 K/mcL (0.0-1.3); Monocytes % 6.1 %; Platelet Count 164 K/mcL (140-400); Red Blood Count 3.59 M/mcL (3.82-4.97); Red Cell Distribution Width 15.8 % (11.5-14.5)
[2017-11-09 06:24] LABS: Neutrophils # 9.1 K/mcL (1.6-8.9)
[2017-11-09 06:40] LABS: BUN/Creatinine Ratio 34 (6-26); Blood Urea Nitrogen 25 mg/dL (8-23); Calcium 8.9 mg/dL (8.6-10.3); Carbon Dioxide 38 mEq/L (23-29); Chloride 99 mEq/L (98-107); Glucose 87 mg/dL (70-105); Magnesium 2.2 mg/dL (1.6-2.6); Osmolality,Calculated 298 (280-300); Potassium 3.9 mEq/L (3.5-5.1); Sodium 142 mEq/L (136-145); eGFR For African Americans > 60 (> 60); eGFR For Non-African Americans > 60 (> 60)
[2017-11-09 07:41] LABS: Platelet Estimate Normal (Normal)
[2017-11-09 07:42] LABS: Platelet Clumps Few (Not Present)
[2017-11-09] MEDS: Diltiazem CD (24hr) 180 MG CAPSULE PO SCH (09:45)
[2017-11-09] MEDS: Aspirin Enteric Coated 81 MG Tablet PO SCH (09:46)
[2017-11-09] MEDS: Isosorbide MONOnitrate (24 HR) 30 MG TAB.ER.24H PO SCH (09:46)
[2017-11-09] MEDS: Bumetanide 1 MG TABLET PO SCH (09:46)
[2017-11-09] MEDS: *HR* HYDROcodone/Acet 5/325 mg TABLET PO PRN (09:46)
[2017-11-09] MEDS: Gabapentin 400 MG CAPSULE PO SCH ×3 (09:46→20:35)
[2017-11-09] MEDS: *HR* Digoxin 0.125 MG TABLET PO SCH (09:47)
[2017-11-09] MEDS: Metoprolol XL (24 HR) Succ 25 MG TAB.ER.24H PO SCH (09:47)
[2017-11-09] MEDS: Insulin LISPRO 300 UNITS/3 ML VIAL SQ SCH ×3 (09:47→17:26)
[2017-11-09] MEDS: Insulin DETEMIR 100 UNIT/ML X5UNITS SQ SCH ×3 (09:47→20:35)
[2017-11-09] MEDS: Nystatin POWDER 30 GM BOTTLE TP SCH ×2 (10:04→20:35)
[2017-11-09] MEDS: Ipratropium/Albuterol Neb 3 ML IH PRN (21:52)
[2017-11-10] MEDS: Insulin LISPRO 300 UNITS/3 ML VIAL SQ SCH ×3 (10:23→17:52)
[2017-11-10] MEDS: Insulin DETEMIR 100 UNIT/ML X5UNITS SQ SCH ×2 (10:23→20:36)
[2017-11-10] MEDS: Nystatin POWDER 30 GM BOTTLE TP SCH ×2 (10:25→20:36)
[2017-11-10] MEDS: Diltiazem CD (24hr) 180 MG CAPSULE PO SCH (10:26)
[2017-11-10] MEDS: Metoprolol XL (24 HR) Succ 25 MG TAB.ER.24H PO SCH (10:26)
[2017-11-10] MEDS: *HR* HYDROcodone/Acet 5/325 mg TABLET PO PRN ×2 (10:26→20:35)
[2017-11-10] MEDS: *HR* Digoxin 0.125 MG TABLET PO SCH (10:27)
[2017-11-10] MEDS: Gabapentin 400 MG CAPSULE PO SCH ×3 (10:28→20:33)
[2017-11-10] MEDS: Aspirin Enteric Coated 81 MG Tablet PO SCH (10:28)
[2017-11-10] MEDS: Isosorbide MONOnitrate (24 HR) 30 MG TAB.ER.24H PO SCH (10:28)
[2017-11-10] MEDS: Bumetanide 1 MG TABLET PO SCH (10:28)
[2017-11-10] MEDS: Ipratropium/Albuterol Neb 3 ML IH PRN (20:57)
[2017-11-11] MEDS: Nystatin POWDER 30 GM BOTTLE TP SCH (08:34)
[2017-11-11] MEDS: Insulin LISPRO 300 UNITS/3 ML VIAL SQ SCH ×3 (08:35→16:55)
[2017-11-11] MEDS: Isosorbide MONOnitrate (24 HR) 30 MG TAB.ER.24H PO SCH (08:41)
[2017-11-11] MEDS: Bumetanide 1 MG TABLET PO SCH (08:41)
[2017-11-11] MEDS: Gabapentin 400 MG CAPSULE PO SCH (08:41)
[2017-11-11] MEDS: *HR* HYDROcodone/Acet 5/325 mg TABLET PO PRN (08:42)
[2017-11-11] MEDS: Aspirin Enteric Coated 81 MG Tablet PO SCH (08:42)
[2017-11-11] MEDS: *HR* Digoxin 0.125 MG TABLET PO SCH (08:42)
[2017-11-11] MEDS: Diltiazem CD (24hr) 180 MG CAPSULE PO SCH (08:43)
[2017-11-11] MEDS: Insulin DETEMIR 100 UNIT/ML X5UNITS SQ SCH ×2 (08:48→20:11)
[2017-11-11] MEDS: Metoprolol XL (24 HR) Succ 25 MG TAB.ER.24H PO SCH (08:49)
--- NOTE | 2017-11-11 12:01 | Internal Med Progress Note ---
Date of Encounter: 11/11/17 Time of Encounter: 11:50 - Assessment and plan (1) Pneumonia Current Visit: No Status: Acute Assessment and plan: November 01. Continue Levaquin through tomorrow's doses with lactobacillus. November 03. Will discontinue Levaquin and lactobacillus. November 05. Now off antibiotics. Continue to monitor clinically. Qualifiers: Pneumonia type: due to unspecified organism Laterality: right Lung location: lower lobe of lung Qualified Code(s): J18.1 - Lobar pneumonia, unspecified organism (2) Leukocytosis Current Visit: No Status: Acute Assessment and plan: November 01. We will monitor CBC. November 08. We will check labs in a.m. November 11. Further improved. Will not workup or treat further. Qualifiers: Leukocytosis type: unspecified Qualified Code(s): D72.829 - Elevated white blood cell count, unspecified (3) Left humeral fracture Current Visit: No Status: Chronic Assessment and plan: November 01. As per orthopedist November 08. Continue present therapy. She will need a Coral lift at home upon discharge. She will also need a semi-electric hospital bed since she requires changes in body position and will need head of bed elevated to at least 30 degrees due to congestive heart failure. Qualifiers: Encounter type: subsequent encounter Humerus Location: proximal Fracture type: closed Fracture morphology: other fracture Fracture alignment: displaced Fracture healing: with routine healing Qualified Code(s): S42.292D - Other displaced fracture of upper end of left humerus, subsequent encounter for fracture with routine healing (4) Diastolic dysfunction with heart failure Current Visit: No Status: Acute Assessment and plan: November 01. Continue Lanoxin, Imdur, Bumex, and Toprol November 05. BN peptide normal at 52. Continue present regimen except increase Bumex. We will also decrease gabapentin to lessen edema. November 08. Continue present regimen. Recheck labs in a.m. November 11. Will decrease gabapentin and increase Bumex to further lessen edema. Anticipate discharge home 11/13/2017. Qualifiers: Heart failure chronicity: acute on chronic Qualified Code(s): I50.33 - Acute on chronic diastolic (congestive) heart failure (5) Hypothyroidism Current Visit: No Status: Chronic Assessment and plan: November 01. Continue Synthroid Qualifiers: Hypothyroidism type: acquired Qualified Code(s): E03.9 - Hypothyroidism, unspecified (6) Atrial fibrillation Current Visit: Yes Status: Chronic Assessment and plan: November 01. Continue aspirin Qualifiers: Atrial fibrillation type: chronic Qualified Code(s): I48.2 - Chronic atrial fibrillation (7) CAD (coronary artery disease) Current Visit: No Status: Chronic Assessment and plan: November 01. Continue aspirin, Toprol, and Imdur Qualifiers: Coronary Disease-Associated Artery/Lesion type: [place] artery [place] vs. transplanted heart: [place] heart Associated angina: without angina Qualified Code(s): I25.10 - Atherosclerotic heart disease of [place] coronary artery without angina pectoris (8) HILLARY (obstructive sleep apnea) Current Visit: No Status: Chronic Assessment and plan: November 01. Continue BiPAP (9) Morbid obesity Current Visit: No Status: Chronic (10) Macrocytosis Current Visit: Yes Status: Acute Assessment and plan: November 01. B12 and folate levels pending. November 03. B12 and folate levels normal. - Subjective Interval history: November 01. She has no new complaints and feels better November 03. She has no new complaints and feels better November 05. She has no new complaints and feels better November 08. She has no new complaints. November 11. She has no new complaints and feels better. She feels she is making progress in therapy - Constitutional Vitals: Temp Pulse Resp BP Pulse Ox 98.1 F 77 16 98/52 96 11/10/17 19:19 11/10/17 19:19 11/10/17 19:19 11/10/17 19:19 11/10/17 21:00 Exam: She is resting comfortably in bed and appears in no acute distress. Her affect is bright and cheerful. Extremities showed slightly decreased edema. I reviewed her medications and lab results. Internal Medicine: Result - Labs CBC & Chem 7: 11/09/17 05:54 11/09/17 05:54 - ABG Interpretation ABG results: PT/INR, D-dimer PT 11.0 Seconds (9.4-12.1) 10/31/17 05:07 Consult Discharge Plan - Plan Referrals: Nahomi Crandall, BLACK ASH WORKER [Primary Care Provider] - 1 week
[2017-11-11] MEDS: Gabapentin 300 MG CAPSULE PO SCH ×3 (13:01→20:05)
[2017-11-12] MEDS: Aspirin Enteric Coated 81 MG Tablet PO SCH (07:59)
[2017-11-12] MEDS: Isosorbide MONOnitrate (24 HR) 30 MG TAB.ER.24H PO SCH (08:00)
[2017-11-12] MEDS: Bumetanide 1 MG TABLET PO SCH (08:00)
[2017-11-12] MEDS: Diltiazem CD (24hr) 180 MG CAPSULE PO SCH (08:00)
[2017-11-12] MEDS: Gabapentin 300 MG CAPSULE PO SCH ×3 (08:01→21:41)
[2017-11-12] MEDS: *HR* Digoxin 0.125 MG TABLET PO SCH (08:01)
[2017-11-12] MEDS: Metoprolol XL (24 HR) Succ 25 MG TAB.ER.24H PO SCH (08:01)
[2017-11-12] MEDS: *HR* HYDROcodone/Acet 5/325 mg TABLET PO PRN (08:01)
[2017-11-12] MEDS: Insulin LISPRO 300 UNITS/3 ML VIAL SQ SCH ×3 (08:15→17:23)
[2017-11-12] MEDS: Insulin DETEMIR 100 UNIT/ML X5UNITS SQ SCH ×2 (09:07→21:42)
[2017-11-12] MEDS: Ipratropium/Albuterol Neb 3 ML IH PRN (20:03)
[2017-11-12] MEDS: Nystatin POWDER 30 GM BOTTLE TP SCH (21:41)
[2017-11-13 07:39] VITALS: BP 138/77
[2017-11-13] MEDS: Insulin LISPRO 300 UNITS/3 ML VIAL SQ SCH ×2 (08:07→12:11)
[2017-11-13] MEDS: Isosorbide MONOnitrate (24 HR) 30 MG TAB.ER.24H PO SCH (08:09)
[2017-11-13] MEDS: Gabapentin 300 MG CAPSULE PO SCH (08:09)
[2017-11-13] MEDS: *HR* Digoxin 0.125 MG TABLET PO SCH (08:09)
[2017-11-13] MEDS: Bumetanide 1 MG TABLET PO SCH (08:09)
[2017-11-13] MEDS: Diltiazem CD (24hr) 180 MG CAPSULE PO SCH (08:09)
[2017-11-13] MEDS: Metoprolol XL (24 HR) Succ 25 MG TAB.ER.24H PO SCH (08:09)
[2017-11-13] MEDS: Aspirin Enteric Coated 81 MG Tablet PO SCH (08:11)
[2017-11-13] MEDS: Insulin DETEMIR 100 UNIT/ML X5UNITS SQ SCH (08:50)
--- NOTE | 2017-11-13 10:20 | Discharge Summary ---
Date of Encounter: 11/13/17 Time of Encounter: 10:00 - Discharge Diagnosis (1) Pneumonia Priority: Primary Status: Acute Qualifiers: Pneumonia type: due to unspecified organism Laterality: right Lung location: lower lobe of lung Qualified Code(s): J18.1 - Lobar pneumonia, unspecified organism (2) Left humeral fracture Priority: Secondary Status: Chronic Qualifiers: Encounter type: subsequent encounter Humerus Location: proximal Fracture type: closed Fracture morphology: other fracture Fracture alignment: displaced Fracture healing: with routine healing Qualified Code(s): S42.292D - Other displaced fracture of upper end of left humerus, subsequent encounter for fracture with routine healing (3) Diastolic dysfunction with heart failure Priority: Secondary Status: Chronic Qualifiers: Heart failure chronicity: acute on chronic Qualified Code(s): I50.33 - Acute on chronic diastolic (congestive) heart failure (4) Hypothyroidism Priority: Secondary Status: Chronic Qualifiers: Hypothyroidism type: acquired Qualified Code(s): E03.9 - Hypothyroidism, unspecified (5) Atrial fibrillation Priority: Secondary Status: Chronic Qualifiers: Atrial fibrillation type: chronic Qualified Code(s): I48.2 - Chronic atrial fibrillation (6) CAD (coronary artery disease) Priority: Secondary Status: Chronic Qualifiers: Coronary Disease-Associated Artery/Lesion type: [place] artery [place] vs. transplanted heart: [place] heart Associated angina: without angina Qualified Code(s): I25.10 - Atherosclerotic heart disease of [place] coronary artery without angina pectoris (7) HILLARY (obstructive sleep apnea) Priority: Secondary Status: Chronic (8) Morbid obesity Priority: Secondary Status: Chronic (9) Macrocytosis Priority: Secondary Status: Acute Hospital course: Ms. Lock is a 77 year old female who was hospitalized at [facility] October 22 with acute respiratory failure and pneumonia. She had influenza A followed by a diagnosis of bacterial pneumonia. She was prescribed a 10 day course of Levaquin. She had evidence of heart failure. Cardiology was consulted and made recommendations. She was discharged to [facility] swing bed for ongoing care needs. Initial orders were written by the discharging physicians at [facility]. I saw her on October 31 and performed a history and physical. She continued on Levaquin for 2 additional days with lactobacillus. She remained stable after antibiotics were discontinued. Lanoxin, isosorbide, and Bumex were added. She had improvement clinically with diuresis, decrease edema and less dyspnea. She will remain on this regimen at discharge. Folate and B12 levels returned normal. She progressed satisfactorily in therapy and on November 13 she was stable for discharge home. She will follow with her PCP within 1 week. She will follow with her orthopedist as directed for left humerus fracture. - Time Spent with Patient Total time spent providing and/or coordinating discharge services: - Discharge Medications Prescriptions: Bumetanide [Bumex] 2 mg PO DAILY #60 tablet Digoxin [Lanoxin] 0.125 mg PO DAILY #30 tablet Gabapentin [Neurontin] 300 mg PO TID 30 Days #90 capsule Isosorbide MONOnitrate (24 HR) [Imdur] 30 mg PO DAILY #30 tab.er.24h Potassium Chloride 10 meq PO DAILY #30 tab.er.prt Home Medications: Aspirin Enteric Coated [Aspirin EC] 81 mg PO DAILY #30 tablet.dr 06/02/15 [Rx] Levothyroxine [Synthroid] 175 mcg PO DAILY 07/06/15 [History] Duloxetine HCl 60 mg PO DAILY 10/07/16 [History] Albuterol Sulfate [Albuterol Inhaler] 2 puff IH Q4HR PRN #4 hfa.aer.ad 10/09/16 [Rx] Multivitamin [One Daily Essential] 1 tab PO DAILY 03/06/17 [History] Oxygen 3 l NS CONT 03/06/17 [History] Atorvastatin Calcium [Lipitor] 80 mg PO HS 10/22/17 [History] Metoprolol Succinate [Toprol Xl] 25 mg PO DAILY 10/22/17 [History] Mirabegron [Myrbetriq] 50 mg PO DAILY 10/22/17 [History] Acetaminophen [Tylenol] 650 mg PO Q6HR PRN tablet 10/30/17 [Rx] Diltiazem CD (24hr) [Cardizem CD] 360 mg PO DAILY cap.er.24h 10/30/17 [Rx] Docusate [Colace] 100 mg PO BID PRN capsule 10/30/17 [Rx] HYDROcodone/Acet 5/325 mg [[place] 5-325 mg] 1 tab PO Q6HR PRN 1 Days tablet [Rx] Insulin DETEMIR [Levemir] 85 unit SQ BID [id number] 10/30/17 [Rx] Insulin LISPRO [HumaLOG] 0 units SQ TIDAC vial 10/30/17 [Rx] Insulin LISPRO [HumaLOG] 20 units SQ TIDWM vial 10/30/17 [Rx] Lactulose 10 gm PO BID PRN udc 10/30/17 [Rx] Mag Hydrox/Al Hydrox/Simeth [Maalox] 15 ml PO Q6HR PRN udc 10/30/17 [Rx] Nystatin POWDER [Nystop] 1 appl TP BID bottle 10/30/17 [Rx] Omeprazole [PriLOSEC] 20 mg PO DAILY@0730 capsule.dr 10/30/17 [Rx] Polyethylene Glycol 3350 [MiraLAX] 17 gm PO DAILY powd.pack 10/30/17 [Rx] Sennosides/Docusate Sodium [Senna Plus] 2 each PO BID PRN tablet 10/30/17 [Rx] Bumetanide [Bumex] 2 mg PO DAILY #60 tablet 11/13/17 [Rx] Digoxin [Lanoxin] 0.125 mg PO DAILY #30 tablet 11/13/17 [Rx] Gabapentin [Neurontin] 300 mg PO TID 30 Days #90 capsule 11/13/17 [Rx] Isosorbide MONOnitrate (24 HR) [Imdur] 30 mg PO DAILY #30 tab.er.24h 11/13/17 [ Rx] Potassium Chloride 10 meq PO DAILY #30 tab.er.prt 11/13/17 [Rx] Allergies/Adverse Reactions: 3 Allergy/AdvReac Type Severity Reaction Status Date / Time hydrocodone [From Vicodin] AdvReac Nausea Verified 03/05/17 17:03 metformin [From Glucophage] AdvReac Diarrhea Verified 07/06/15 09:38 Date of admission: 10/30/17 15:00 Primary care physician: Nahomi Crandall, Consults: 10/30/17 16:07 Consult to Occupational Therapy [CONS] Routine Comment: Evaluate, Plan and Implement Plan of Care Reason for Consult: Evaluate, Plan and Implement Plan of Care Consult to Physical Therapy [CONS] Routine Comment: Evaluate, Plan and implement plan of care. Reason for Consult: Evaluate, Plan and Implement Plan of care. Consult to Museum Technician [CONS] Routine Reason for SW Consult: Discharge planning 10/31/17 10:42 Consult to Speech Therapy [CONS] Routine Comment: Evaluate, develop and implement POC Reason for Consult: dysphagia Call Completed: No - Constitutional Vitals: Temp Pulse Resp BP Pulse Ox 98.1 F 80 20 138/77 97 11/13/17 07:36 11/13/17 07:36 11/13/17 07:36 11/13/17 07:36 11/13/17 07:36 - Patient Status Disposition: Home Health Service Functional capacity at discharge: uses cane/walker Overall status at discharge: patient is progressing back to baseline - Discharge Instructions Follow Up With: Nahomi Crandall, SALES ENGINEERING MANAGER [Primary Care Provider] - 1 week - Diet and Activity Activity: as per physical therapy Diet: low fat, low cholesterol
--- NOTE | 2017-11-13 10:26 | Physician Discharge Referral ---
Home Health/Hosp Referral Info Transfer to: Home Health Attending Provider: Maulik Provider in Charge Post Discharge: PCP (Nahomi Crandall CNP) - Diagnosis (1) Pneumonia Priority: Primary Status: Acute (2) Left humeral fracture Priority: Secondary Status: Chronic (3) Diastolic dysfunction with heart failure Priority: Secondary Status: Chronic (4) Hypothyroidism Priority: Secondary Status: Chronic (5) Atrial fibrillation Priority: Secondary Status: Chronic (6) CAD (coronary artery disease) Priority: Secondary Status: Chronic (7) HILLARY (obstructive sleep apnea) Priority: Secondary Status: Chronic (8) Morbid obesity Priority: Secondary Status: Chronic (9) Macrocytosis Priority: Secondary Status: Acute - Respiratory Orders Oxygen / L per min (2 L/m by nasal cannula 25/03.) Smoking Cessation: Smoking cessation has been advised. For more information, call the [place] Tobacco Quit Line at 9-305-PVDQ-NOW. - Activity Activity Orders: Walker - Services Needed Following services are medically necessary services: Nursing, Home Health Aide, Physical Therapy, Occupational Therapy - Transfer Medications Prescriptions: Bumetanide [Bumex] 2 mg PO DAILY #60 tablet Digoxin [Lanoxin] 0.125 mg PO DAILY #30 tablet Gabapentin [Neurontin] 300 mg PO TID 30 Days #90 capsule Isosorbide MONOnitrate (24 HR) [Imdur] 30 mg PO DAILY #30 tab.er.24h Potassium Chloride 10 meq PO DAILY #30 tab.er.prt Home Medications: Aspirin Enteric Coated [Aspirin EC] 81 mg PO DAILY #30 tablet. 06/02/15 [Rx] Levothyroxine [Synthroid] 175 mcg PO DAILY 07/06/15 [History] Duloxetine HCl 60 mg PO DAILY 10/07/16 [History] Albuterol Sulfate [Albuterol Inhaler] 2 puff IH Q4HR PRN #4 hfa.aer.ad 10/09/16 [Rx] Multivitamin [One Daily Essential] 1 tab PO DAILY 03/06/17 [History] Oxygen 3 l NS CONT 03/06/17 [History] Atorvastatin Calcium [Lipitor] 80 mg PO HS 10/22/17 [History] Metoprolol Succinate [Toprol Xl] 25 mg PO DAILY 10/22/17 [History] Mirabegron [Myrbetriq] 50 mg PO DAILY 10/22/17 [History] Acetaminophen [Tylenol] 650 mg PO Q6HR PRN tablet 10/30/17 [Rx] Diltiazem CD (24hr) [Cardizem CD] 360 mg PO DAILY cap.er.24h 10/30/17 [Rx] Docusate [Colace] 100 mg PO BID PRN capsule 10/30/17 [Rx] HYDROcodone/Acet 5/325 mg [[place] 5-325 mg] 1 tab PO Q6HR PRN 1 Days tablet [Rx] Insulin DETEMIR [Levemir] 85 unit SQ BID [id number] 10/30/17 [Rx] Insulin LISPRO [HumaLOG] 0 units SQ TIDAC vial 10/30/17 [Rx] Insulin LISPRO [HumaLOG] 20 units SQ TIDWM vial 10/30/17 [Rx] Lactulose 10 gm PO BID PRN udc 10/30/17 [Rx] Mag Hydrox/Al Hydrox/Simeth [Maalox] 15 ml PO Q6HR PRN udc 10/30/17 [Rx] Nystatin POWDER [Nystop] 1 appl TP BID bottle 10/30/17 [Rx] Omeprazole [PriLOSEC] 20 mg PO DAILY@0730 capsule.dr 10/30/17 [Rx] Polyethylene Glycol 3350 [MiraLAX] 17 gm PO DAILY powd.pack 10/30/17 [Rx] Sennosides/Docusate Sodium [Senna Plus] 2 each PO BID PRN tablet 10/30/17 [Rx] Bumetanide [Bumex] 2 mg PO DAILY #60 tablet 11/13/17 [Rx] Digoxin [Lanoxin] 0.125 mg PO DAILY #30 tablet 11/13/17 [Rx] Gabapentin [Neurontin] 300 mg PO TID 30 Days #90 capsule 11/13/17 [Rx] Isosorbide MONOnitrate (24 HR) [Imdur] 30 mg PO DAILY #30 tab.er.24h 11/13/17 [ Rx] Potassium Chloride 10 meq PO DAILY #30 tab.er.prt 11/13/17 [Rx] Allergies/Adverse Reactions: 3 Allergy/AdvReac Type Severity Reaction Status Date / Time hydrocodone [From Vicodin] AdvReac Nausea Verified 03/05/17 17:03 metformin [From Glucophage] AdvReac Diarrhea Verified 07/06/15 09:38 Certification: Further, I certify that my clinical findings support that this patient is homebound (i.e. absences from home require considerable and taxing effort and are for medical reasons or mormonism services or infrequently or short duration when for other reasons) because: Homebound Reason: Leaving home requires considerable and taxing effort due to condition (Significantly impaired walking ability) Attestation: My signature below is to certify that this patient is under my care and that I, or nurse practitioner, or a physician's litigation assistant working with me, has a face-to -face encounter with this patient.
== END 2017-11-13 13:00 | disposition home health service (06) | DRG 945 ==
LOC: INPPIK 15:56
PROVIDERS: ADMIT Internal Medicine; ATTEND Internal Medicine